=== PATIENT | female | born 1995 | race Caucasian/White ===

== ENCOUNTER 2024-03-09 16:52 | Observation (INO) ==
[2024-03-09 17:06] VITALS: PULSE 88
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
[2024-03-09 19:04] VITALS: BP 122/77
[2024-03-09 19:14] VITALS: RESP 16; TEMP 97.9
--- NOTE | 2024-03-09 20:07 | Communication Note ---
Date of Service: March 09, 2024 Feels no different. Good fm. Was having some uterine activity , but not feeling and spaced after BR. Reactive nst, category one. Will d/c. Precauti ons given. Had appt in the office today.
== END 2024-03-09 20:15 | disposition home or self-care (01) ==
LOC: OPB 16:52 → 4S1 16:52

== ENCOUNTER 2024-05-04 07:03 | Inpatient (IN) ==
[2024-05-05] MEDS ORDERED: ACETAMINOPHEN 500 MG TAB PO PRN (07:35)
[2024-05-05] MEDS ORDERED: CALCIUM CARBONATE 500 MG CHEWABLE TAB PO PRN ×2 (07:35→09:36)
[2024-05-05] MEDS ORDERED: OXYTOCIN 30 UNITS/NSS 30 UNITS/500 ML BAG IV PRN ×4 (07:35→19:25)
[2024-05-05] MEDS ORDERED: LIDOCAINE 1% LOCAL 20 ML VIAL INFIL PRN ×2 (07:35→09:36)
[2024-05-05 08:22] LABS: Hematocrit (blood only) 37.6 % (37.0-47.0); Hemoglobin 12.8 g/dl (12.0-16.0); Mean Corpuscular Hemoglobin 31.2 pg (25.0-34.0); Mean Corpuscular Volume 91.7 fL (80.0-100.0); Mean Platelet Volume 10.2 fL (9.4-12.4); Platelet Count 179 K/uL (130-400); RDW Coefficient of Variation 13.3 % (11.5-14.5); RDW Standard Deviation 44.8 fL (36.4-46.3); White Blood Count 11.73 K/ul (4.8-10.8)
[2024-05-05] MEDS: SODIUM CHLORIDE 0.9% 1,000 ML IV SCH (09:20)
[2024-05-05] MEDS ORDERED: SODIUM CHLORIDE 0.9% 1,000 ML IV SCH (09:30)
[2024-05-05] MEDS ORDERED: NALBUPHINE HCL INJ 10 MG/ML AMP IV PRN (09:38)
[2024-05-05] MEDS ORDERED: NALOXONE HCL 1 MG in SODIUM CHLORIDE 0.9% 1,000 ML IV PRN (09:38)
[2024-05-05] MEDS ORDERED: diphenhydrAMINE 50 MG/ML VIAL IV PRN (09:38)
[2024-05-05] MEDS ORDERED: LIDOCAINE 2% MPF LOCAL 5 ML VIAL EPI PRN (09:38)
[2024-05-05] MEDS ORDERED: ePHEDrine sulfate 50 MG/ML AMP IV PRN (09:38)
[2024-05-05] MEDS ORDERED: NALOXONE HCL 0.4 MG/1 ML VIAL/CARP IV PRN (09:38)
[2024-05-05] MEDS ORDERED: BUPIVACAINE 0.25% PF 30 ML VIAL EPI PRN (09:38)
[2024-05-05] MEDS ORDERED: fentaNYL citrate PF 100 MCG/2 ML VIAL EPI PRN (09:38)
[2024-05-05] MEDS ORDERED: ROPIVACAINE 0.5% PF 5 MG/ML 20 ML VIAL EPI PRN (09:38)
[2024-05-05] MEDS ORDERED: SODIUM CHLORIDE 0.9% PF INJ 10 ML VIAL EPI PRN (09:38)
--- NOTE | 2024-05-05 09:38 | Anesthesiology Consultation ---
Date of Service May 05, 2024 Assessment & Plan Chart Review Chart Review: Acceptable Risk for Labor Epidural Consults Requested none History Height/Weight Height: 5 ft 3 in Weight: 74.389 kg Allergies Allergy/AdvReac Type Severity Reaction Status Date / Time No Known Allergies Allergy Verified 05/04/24 13:43 Medications Home Medications Medication Instructions Recorded Confirmed Last Taken 21-iron fu-folic acid 1 tab PO DAILY 09/11/23 05/05/24 05/04/24 [ Complete] ferrous sulfate [Iron (ferrous 1 tab PO DAILY 02/10/24 05/05/24 05/04/24 sulfate)] Past Medical History Medical History Varicella vaccination Past Family History Family History Father Hypertension Hypercholesteremia Factor II deficiency Grandfather (Maternal) Myocardial infarction Brother Factor II deficiency Grandfather (Paternal) Factor II deficiency Denies family history of Ovarian cancer Breast cancer Colorectal cancer Past Surgical History Surgical History S/P wisdom tooth extraction Social History Smoking Status: Never smoker Do You Dip or Chew Tobacco: No Hx Alcohol Use: No Hx Substance Use: No substance use type: does not use Physical Exam Vital Signs Last Vital Signs Temp 36.9 C 05/05/24 07:35 Pulse 88 05/05/24 09:36 Resp 18 05/05/24 07:35 Pulse Ox 99 05/05/24 09:36 Testing Laboratory Results 05/05/24 08:05
[2024-05-05] MEDS: fentANYL 2 MCG/ML BUPIVacaine 0.125%-NSS 100ML BAG EPI PRN (10:10)
[2024-05-05] MEDS: LIDOCAINE 2%/EPINEPHRINE 1:200,000 20 ML PF EPI STA (10:10)
--- NOTE | 2024-05-05 10:31 | History & Physical Report ---
Date of Service May 05, 2024 Assessment & Plan (1) Post-term , 40-42 weeks of gestation: Plan: G 2 P0 female at 40-6/7 weeks who presents in labor on the day she was to be induced. Patient is requesting epidural analgesia. Will AROM when she is comfortable. Anticipate vaginal . Admission and Anticipated Discharge Date Admission Date: May 05, 2024 History of Present Illness Primary Care Provider: NO PCP Patient is a 29-year-old 2 para 0-0-1-0 female EDC of 04/29/2024 who presents at 40-6/7 weeks for induction of labor because of postterm . has been uncomplicated and testing has been reassuring. GBS is negative. Blood type is O+. After her exam in the office yesterday, she had a regular contractions which then progressed to being more regular at approximately 3 AM this morning. Upon arrival in labor delivery at 6 AM, she was having regular contractions every 4 to 5 minutes. Allergies Allergy/AdvReac Type Severity Reaction Status Date / Time No Known Allergies Allergy Verified 05/04/24 13:43 Home Medications Medication Instructions Recorded Confirmed Type 21-iron fu-folic acid 1 tab PO DAILY 09/11/23 05/05/24 History [ Complete] ferrous sulfate [Iron (ferrous 1 tab PO DAILY 02/10/24 05/05/24 History sulfate)] Patient History Medical History Varicella vaccination Surgical History S/P wisdom tooth extraction Family History Father Hypertension Hypercholesteremia Factor II deficiency Grandfather (Maternal) Myocardial infarction Brother Factor II deficiency Grandfather (Paternal) Factor II deficiency Denies family history of Ovarian cancer Breast cancer Colorectal cancer Social History Smoking Status: Never smoker Do You Dip or Chew Tobacco: No; Hx Alcohol Use: No Hx Substance Use: No Preferred Language: Ghanaian Communication Ability: Effective Monitor Technician Required: No Beliefs That Will Affect Care: None marital status: marital status details: Fredo Pascual (29) [phone] Current Living Situation: Spouse Current Living Situation Comment: Patient lives with spouse and a dog. 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 Other Information That Helps Us Care for You: No Feels Safe at Home: Yes Safety Concerns: Feels Safe At This Time Assistive Devices: None Review of Systems All systems reviewed & are unremarkable except as noted in HPI & below Physical Exam Constitutional: WD/WN, vitals as above Psychiatric: A+Ox3, euthymic affect Genitourinary: OB Exam Abdomen: + vertex, + estimated weight (8-9) and + regular contractions (Q4-5 minutes mild to moderate) Manual OB Exam: + cervical dilation 5 cm, + cervical effacement 90% and + station -1 (posterior) OB Exam Monitor Tracing: + external FHT monitor used, + external uterine monitor used, + category I and + normal FHT variability Results & Data Vital Signs (Past 12 Hours) Vital Signs Temp Pulse Resp BP Pulse Ox 05/05/24 10:24 77 111/62 05/05/24 10:22 88 119/66 05/05/24 10:21 80 98 05/05/24 10:20 82 119/62 05/05/24 10:16 91 H 98 05/05/24 10:11 83 99 05/05/24 10:06 100 H 98 05/05/24 10:04 99 H 132/75 05/05/24 10:01 105 H 98 05/05/24 09:56 102 H 99 05/05/24 09:54 96 H 133/76 05/05/24 09:51 97 H 98 05/05/24 09:46 98 H 98 05/05/24 09:41 100 H 98 05/05/24 09:36 88 99 05/05/24 09:31 89 99 05/05/24 09:26 86 98 05/05/24 07:35 98.4 F 18 Coding Level of Care Code 72748 INT INP/OBS CARE MIN Diagnoses Post-term , 40-42 weeks of gestation O48.0
--- NOTE | 2024-05-05 11:38 | Labor Progress Brief Note ---
Date of Service May 05, 2024 Subjective Reason For Note: Routine Evaluation comfortable with epidural analgesia now ctns now 4-5 minutes-moderate FHT category 1 cervix 6/90/-1 AROM for thin mec fluid will start pitocin augmentation of contractions Assessment & Plan Admission and Anticipated Discharge Date Admission Date: May 05, 2024 Physical Exam Constitutional: WD/WN, vitals as above Psychiatric: A+Ox3, euthymic affect Results & Data Vital Signs (Past 12 Hours) Vital Signs Temp Pulse Resp BP Pulse Ox 05/05/24 11:31 90 98 05/05/24 11:30 86 102/58 L 05/05/24 11:26 95 H 98 05/05/24 11:21 96 H 99 05/05/24 11:17 77 111/71 05/05/24 11:16 77 100 05/05/24 11:11 78 99 05/05/24 11:06 80 99 05/05/24 11:01 99 05/05/24 11:01 86 05/05/24 11:01 86 119/70 05/05/24 11:00 18 05/05/24 11:00 98.4 F 18 05/05/24 10:56 78 99 05/05/24 10:51 100 H 98 05/05/24 10:46 93 H 98 05/05/24 10:44 83 116/72 05/05/24 10:41 86 99 05/05/24 10:40 77 109/67 05/05/24 10:36 79 98 05/05/24 10:35 78 108/64 05/05/24 10:31 80 98 05/05/24 10:30 76 111/70 05/05/24 10:26 83 98 05/05/24 10:24 77 111/62 05/05/24 10:22 88 18 119/66 05/05/24 10:21 80 98 05/05/24 10:20 82 18 119/62 05/05/24 10:18 18 05/05/24 10:18 18 05/05/24 10:16 91 H 18 98 05/05/24 10:14 18 05/05/24 10:14 18 05/05/24 10:12 18 05/05/24 10:12 18 05/05/24 10:11 83 99 05/05/24 10:06 100 H 98 05/05/24 10:04 99 H 132/75 05/05/24 10:01 105 H 98 05/05/24 09:56 102 H 99 05/05/24 09:54 96 H 133/76 05/05/24 09:51 97 H 98 05/05/24 09:46 98 H 98 05/05/24 09:41 100 H 98 05/05/24 09:36 88 99 05/05/24 09:31 89 99 05/05/24 09:26 86 98 05/05/24 07:35 98.4 F 18 Coding Level of Care Code 80599 INT INP/OBS CARE MIN
[2024-05-05] MEDS: OXYTOCIN 30 UNITS/NSS 30 UNITS/500 ML BAG IV PRN (11:39)
[2024-05-05] MEDS: ONDANSETRON INJ 2 MG/ML 2 ML VIAL ONE (13:20)
[2024-05-05] MEDS ORDERED: NURSING L&D Epidural Breakthrough Pain Update ONE (15:11)
[2024-05-05] MEDS: LIDOCAINE 2%/EPINEPHRINE 1:200,000 20 ML PF ONE (15:46)
[2024-05-05] MEDS: fentANYL 2 MCG/ML BUPIVacaine 0.125%-NSS 100ML BAG ONE (17:09)
[2024-05-05] MEDS ORDERED: bisacodyL 10 MG SUPP PR PRN (19:25)
[2024-05-05] MEDS ORDERED: ACETAMINOPHEN 325 MG TAB PO PRN (19:25)
--- NOTE | 2024-05-05 19:27 | Anesthesia Procedure Note ---
Date of Service May 05, 2024 Anesthesia Post Epidural Note Vital Signs Vital Signs: Temp Pulse Resp BP Pulse Ox 37.3 C 97 H 18 126/78 97 05/05/24 18:55 05/05/24 19:15 05/05/24 19:15 05/05/24 19:15 05/05/24 18:21 Pain Intensity Abdomen: Pain Intensity: 7 Notes Mental Status: alert / awake / arousable and participated in evaluation Nausea / Vomiting: adequately controlled Pain: adequately controlled Airway Patency, RR, SpO2: stable & adequate BP & HR: stable & adequate Hydration State: stable & adequate Neuraxial Anesthesia: was administered and sensory block is resolving Anesthetic Complications: no major complications apparent and Pt Satisfied with anesthetic care Epidural: Removed without complications and With tip intact
--- NOTE | 2024-05-05 19:42 | Delivery Summary ---
Vaginal Delivery Summary Date of Service May 05, 2024 Vaginal Delivery Summary and 2nd Degree LAC (episiotomy) Patient is a 29-year-old 2 para 1-0-0-1 0 female who presented in active labor on the day for induction at 40-6/7 weeks. She received effective epidural analgesia. Membranes were ruptured for thin meconium stained fluid. heart tracing remained category 1 throughout her labor and pushing stage. She progressed to full dilation and pushed for approximately 2 and half hours. Because of maternal exhaustion, and vertex at +3 station, she was offered vacuum assisted delivery. After verbal consent, the [place] vacuum was placed on the vertex taking care to avoid maternal tissue. During 1 contraction with gentle traction the head was delivered to . There was no nuchal cord present and the rest the delivered with assistance but without maternal effort. Thicker meconium stained fluid was noted after the baby was delivered. He was placed on the mother's abdomen for further attention and drying. He was slow to respond, and taken to the baby bed for further attention and drying. He required PPV and was taken to the nursery for further treatment. Please see nursery notes and Dr. Bermudez's assessment elsewhere. After cord blood was obtained, the placenta was expressed intact with a three-vessel cord. bleeding was controlled with dilute Pitocin and fundal massage. Second-degree perineal episiotomy was repaired with 3-0 chromic in the usual fashion. QBL was 415 cc. [facility] [place] Vaginal Delivery Charge Delivery Type Details: and 2nd Degree LAC (episiotomy)
[2024-05-05] MEDS: IBUPROFEN 600 MG TAB PO PRN (20:05)
[2024-05-05] MEDS: BENZOCAINE 20% SPRY 85 APPLN/85 GM CAN EXT PRN (21:12)
[2024-05-05] MEDS: DOCUSATE SODIUM 100 MG CAP PO SCH (22:28)
--- NOTE | 2024-05-06 07:07 | Medical Student Progress Note ---
Date of Service May 06, 2024 Assessment & Plan (1) Normal course: Plan: Patient is a 29 year old day 1 s/p w/ 2nd degree LAC secondary to episiotomy. She is recovery very well and is able to ambulate, void urine, pass gas. She plans to breastfeed. # Bleeding: Her bleeding has continued and is more than a typical menstrual period. She is not passing any large clots. We expect her bleeding to continue to decrease with time. -Continue to monitor bleeding status #Pain Control: Her pain is well controlled on current regime. -Continue with ibuprofen and acetaminophen. #: -Patient is a first time mother and could benefit from seeing services to optimize her experience. #Discharge: She is overall recovering very well. Continue to monitor and considering discharge 48hrs after . Admission and Anticipated Discharge Date Admission Date: May 05, 2024 Subjective Patient is a 29 year old day 1 s/p w/ 2nd degree LAC secondary to episiotomy. Overall, she is doing very well and has no concerns at this time. Her pain is a 4/10 and is well controlled on ibuprofen. Her bleeding is more than a typical menstrual period and she has not passed any large clots. She is able to ambulate, void urine completely and independently. She is passing gas but has not had a BM. She plans to breast feed her . She had a slight headache this morning only while pumping. Otherwise, denies fevers, chills, vision loss, blurry vision, chest pain, SOB, couch, leg pain, leg swelling. Physical Exam Physical Exam: Well appearing, NAD Respiratory: Lungs CTAB without wheezes, rales, rhonchi Cardiovascular: Heart RRR without murmurs, rubs, gallops. No new LE swelling, warmth, redness. Gastrointestinal (Abdomen): Abdomen is soft, nontender, nondistended. Uterus is firm, nontender, palpated 1cm above the umbilicus. Psychiatric: Appropriate mood and affect. Results & Data Vital Signs (Past 12 Hours) Vital Signs Temp Pulse Pulse Resp BP BP Pulse Ox 05/06/24 03:00 37 C 89 18 116/75 97 05/05/24 22:45 37.2 C 98 H 20 114/65 98 05/05/24 22:45 05/05/24 21:00 36.9 C 96 H 18 118/73 05/05/24 20:45 107 H 112/74 05/05/24 20:30 114 H 18 126/77 05/05/24 20:15 112 H 130/84 05/05/24 20:00 93 H 18 123/75 05/05/24 19:45 94 H 18 126/72 05/05/24 19:30 106 H 18 132/74 05/05/24 19:15 97 H 18 126/78 05/05/24 19:01 97 H 18 118/74 O2 Del Method 05/06/24 03:00 Room Air 05/05/24 22:45 Room Air 05/05/24 22:45 Room Air 05/05/24 21:00 05/05/24 20:45 05/05/24 20:30 05/05/24 20:15 05/05/24 20:00 05/05/24 19:45 05/05/24 19:30 05/05/24 19:15 05/05/24 19:01
[2024-05-06 07:11] LABS: Hematocrit (blood only) 30.7 % (37.0-47.0); Hemoglobin 10.4 g/dl (12.0-16.0); Mean Corpuscular Hemoglobin 31.2 pg (25.0-34.0); Mean Corpuscular Hgb Conc 33.9 g/dL (32.0-36.0); Mean Corpuscular Volume 92.2 fL (80.0-100.0); Mean Platelet Volume 10.3 fL (9.4-12.4); Platelet Count 164 K/uL (130-400); RDW Coefficient of Variation 13.6 % (11.5-14.5); RDW Standard Deviation 45.9 fL (36.4-46.3); Red Blood Count 3.33 M/uL (4.20-5.40)
[2024-05-06] MEDS: BUPIVACAINE 0.25% PF 30 ML VIAL EPI STA (07:11)
[2024-05-06] MEDS: fentaNYL citrate PF 100 MCG/2 ML VIAL EPI STA (07:11)
[2024-05-06] MEDS: ePHEDrine sulfate 50 MG/ML AMP ONE (07:12)
[2024-05-06] MEDS: SODIUM CHLORIDE 0.9% PF INJ 10 ML VIAL ONE (07:12)
[2024-05-06] MEDS: SODIUM CHLORIDE 0.9% PF INJ 10 ML VIAL EPI STA (07:12)
[2024-05-06] MEDS: fentaNYL citrate PF 100 MCG/2 ML VIAL ONE (07:12)
[2024-05-06] MEDS: BUPIVACAINE 0.25% PF 30 ML VIAL ONE (07:12)
[2024-05-06] MEDS: DIPHTHER/TETAN/PERTUS Vaccine (Tdap, Adol/Adult) 0.5mL IM ONE (07:13)
[2024-05-06] MEDS: PRENATAL VITAMIN 1 TAB PO SCH (08:35)
--- NOTE | 2024-05-06 08:37 | Obstetrical Progress Note ---
Date of Service May 06, 2024 Assessment & Plan (1) Normal course: satisfactory course continue current care plan Subjective Ambulation: ambulating normally Voiding: no voiding problems Passing Gas:: Yes Diet Tolerance:: regular diet Lochia:: Moderate Feeding Type:: breast feeding doing well baby now on room air but still on Level 2 bed Physical Exam Constitutional WD/WN, vitals as above Psychiatric A+Ox3, euthymic affect Genitourinary OB Exam Abdomen: + fundal height Fundus: + firm and + relation to umbilicus (at u) Results & Data Vital Signs (Past 12 Hours) Vital Signs Temp Pulse Pulse Resp BP BP Pulse Ox 05/06/24 03:00 98.6 F 89 18 116/75 97 05/05/24 22:45 99.0 F 98 H 20 114/65 98 05/05/24 22:45 05/05/24 21:00 98.4 F 96 H 18 118/73 05/05/24 20:45 107 H 112/74 O2 Del Method 05/06/24 03:00 Room Air 05/05/24 22:45 Room Air 05/05/24 22:45 Room Air 05/05/24 21:00 05/05/24 20:45
[2024-05-06 08:57] VITALS: O2SAT 98
[2024-05-06] MEDS: HYDROCORTISONE ACETATE 25 MG SUPP PR PRN (15:30)
[2024-05-06 19:35] VITALS: RESP 16
[2024-05-06] MEDS: bisacodyL 5 MG TABEC PO SCH (20:20)
[2024-05-07] MEDS: ACETAMINOPHEN 325 MG TAB PO PRN (05:19)
[2024-05-07 07:23] LABS: Hematocrit (blood only) 31.5 % (37.0-47.0); Hemoglobin 10.7 g/dl (12.0-16.0)
--- NOTE | 2024-05-07 08:15 | Obstetrical Progress Note ---
Date of Service May 07, 2024 Assessment & Plan (1) Encounter for assessment: Plan: Patient is PPD 2 s/p and doing well - Eating well, voiding well, ambulating well - vitals reviewed and within normal limits - pain well controlled with analgesics - OOB, ambulation, diet progression as tolerated - Blood type: O+, GBS neg, rubella NOT immune - Plan to discharge today - After discharge, 6 week follow up with OBGYN Admission and Anticipated Discharge Date Admission Date: May 05, 2024 Supervising Physician Co-Signing Physician Notes Resident Physician Supervision Note: I was present with Dr. Hollingsworth during the history and exam. I discussed the case with the resident and agree with the findings and plan as documented in the note. Any exceptions or clarifications are listed here: [None] Documented By: Dinesh Negron MD, FACOG Subjective 29 yo post- day 2 s/p Ambulation: ambulating normally Voiding: no voiding problems Passing Gas:: Yes Diet Tolerance:: regular diet Lochia:: Small Feeding Type:: breast and bottle feeding Current Pain Level:0/10 Resting comfortably this AM in NAD. Denies ALLEN, CP, SOB, N/V/D, LE pain/swelling. Physical Exam Physical Exam: General: patient resting comfortably, NAD, non-toxic in appearance, answers questions appropriately. Skin: warm, dry, intact HEENT: NC/AT, anicteric sclera, conjunctiva without injection, moist mucus membranes. Heart: +S1/S2, regular, no m/r/g Lungs: equal air entry bilaterally, no rales/rhonchi/wheezes Abd: +BS, soft, NT/ND, uterine fundus firm at umbilicus Ext: warm, no clubbing/cyanosis or edema, Jay Jay's neg. Neuro: nonfocal, speech intact, no facial droop, moving all extremities. Results & Data Vital Signs (Past 12 Hours) Vital Signs Temp Pulse Resp BP Pulse Ox O2 Del Method 05/06/24 23:27 36.6 C 82 16 107/65 98 Room Air Resident Activity Tracking Resident Involvement: Resident Care Provided Care Provided: Adult Hospital Medicine
[2024-05-07 14:13] VITALS: BP 122/72; PULSE 102; TEMP 98.4
--- NOTE | 2024-05-09 08:58 | Coding Query ---
CODING QUERY To promote full compliance with coding requirements relating to patient care, provider participation is requested in all cases of bacon skinner uncertainty. Please assist us with the question(s) below: Coding Question(s): There is documentation on 05/06 Progress Note of, " # Bleeding: Her bleeding has continued and is more than a typical menstrual period. She is not passing any large clots. We expect her bleeding to continue to decrease with time. -Continue to monitor bleeding status", and, " Her bleeding is more than a typical menstrual period and she has not passed any large clots", and there is no further documentation of bleeding, and the next 05/06 Progress Note documents, "Normal course: satisfactory course continue current care plan". Please specify below, in your clinical opinion, regarding Bleeding: ( ) Bleeding was complicating the course (x ) Normal course, with no bleeding complicating ( ) Other: Please Specify Physician's Response(s): Thank you Crystal Ross Principal Diagnosis: "that condition established after study, to be chiefly responsible for occasioning the admission of the patient to the hospital for care." Co-Existing Principal Diagnosis: "when two or more diagnoses equally meet the criteria for principal diagnosis as determined by the circumstances of admission, diagnostic work up, and/or therapy provided, and the Alphabetic Index, Tabular List, or another coding guideline does not provide sequencing direction, any one of the diagnoses may be sequenced first." "When the physician has documented what appears to be a current diagnosis in the body of the record, but has not included the diagnosis in the final diagnostic statement, the physician should be asked whether the diagnosis should be added." (Source Coding [facility] 2 QTR90. p3-4) [place]
== END 2024-05-07 14:55 | disposition home or self-care (01) | DRG 807 ==
LOC: 4S3 07:03 → 4S1 05-05 09:26 → 4E2 05-05 21:33